=== PATIENT | female | born 1990 | race Caucasian/White ===

== ENCOUNTER 2016-08-05 04:09 | Emergency (ER) | payer OTHER ==
[~2016-08-05] VITALS: Ht 177.8 cm; Wt 122.5 kg
[~2016-08-05 04:09] MED LIST: CLINDAMYCIN HC150 MG PO
[2016-08-05] MEDS ORDERED: LEVOTHYROXINE 0.15MG PO (04:26)
[2016-08-05] MEDS ORDERED: VISTARIL 25 MG25 M1 PO (04:27)
[2016-08-05] MEDS ORDERED: ENSKYCE1 EACH PO (04:27)
[2016-08-05] MEDS ORDERED: AMOXICILLIN 50500 M1 PO (05:37)
[2016-08-05] MEDS ORDERED: ULTRAM 50MG TAB50 MG PO (05:37)
[2016-08-05 06:39] VITALS: BP 122/68
== END 2016-08-05 06:30 | disposition home or self-care (01) ==
LOC: ER 04:09
DX: K08.89 Other specified disorders of teeth and supporting structures (principal); F17.210 Nicotine dependence, cigarettes, uncomplicated; F10.99 Alcohol use, unspecified with unspecified alcohol-induced disorder